=== PATIENT | female | born 1965 | race Asian ===

== ENCOUNTER 2023-02-27 12:42 | Day surgery (SDC) | payer OTHER, SELFPAY ==
--- NOTE | 2023-02-27 | PATH_ITS ---
[facility] Accession Number: [id number] No. of containers..03 Tissue . 01 Material submitted: . PART A: gastrointestinal site - GASTRIC BX PART B: cecum - CECAL POLYP PART C: sigmoid colon - SIGMOID POLYP . 01 Diagnosis: A. Gastric, Biopsy: Gastric oxyntic mucosa with no significant diagnostic alterations. No Helicobacter pylori organisms identified on H/E slide. No intestinal metaplasia, dysplasia, or malignancy. . B. Cecal Polyp, Biopsy: Tubular adenoma. . C. Sigmoid Colon Polyp, Biopsy: Tubular adenoma with focal high-grade dysplasia. No malignancy identified. See comment. MRV 03/02/2023 1341 Local . 01 Comment: C. Due to tissue orientation and piecemeal sampling, evaluation of the presence or absence of high-grade dysplasia at the margin is not possible in this sample. As part of routine quality technician fiberglass, Dr. Sherwin Joseph has also reviewed part C of this case and agrees with the interpretation. . 01 Electronically signed: . Stacy Valadez MD, Pathologist NPI- [id number] . 01 Gross description: . Part A: GASTRIC BX: Received in formalin is 1 fragment(s) of singer, soft tissue measuring 0.2 x 0.1 x 0.1 cm submitted entirely in 1 cassette(s) Part B: CECAL POLYP: Received in formalin is multiple fragment(s) of singer, soft tissue measuring 0.7 x 0.4 x 0.1 cm in aggregate submitted entirely in 1 cassette(s) Part C: SIGMOID POLYP: Received in formalin is 1 fragment(s) of singer, soft tissue measuring 0.7 x 0.6 x 0.3 cm submitted entirely in 1 cassette(s) /AAY 02/28/2023 0628 Local . 01 Pathologist provided ICD-10: D12.0, D12.5 . 01 CPT . 498812, 160130, 094446 Specimen Comment: A courtesy copy of this report has been sent to [phone] Performed at: 01 [facility] [address] [place] [address] [id number] MD Ryan Hillman MD Phone: [phone]
[2023-02-27 13:15] VITALS: BP 120/89; PULSE 69; RESP 16; TEMP 36.5; O2SAT 99
[2023-02-27] MEDS: LACTATED RINGERS 1,000 ML 42 ML IV ×2 (13:29→14:39)
--- NOTE | 2023-02-27 13:47 | PM.PREOP ---
Pre-operative Note Interval Note History & Physical reviewed/Exam performed by Physician: Yes Changes to H&P: No
--- NOTE | 2023-02-27 14:49 | P.OP.EGD&C_ITS ---
Operative Date/Time/Diagnoses Date of procedure: 02/27/23 Time of procedure: 14:49 Pre-op diagnosis: Epigastric pain Positive fecal immunochemical test Post-op diagnosis: same Procedure & Clinicians Study performed: Diagnostic Esophagoduodenoscopy and colonoscopy Same procedure as scheduled: Yes Indications: Positive fecal immunochemical test Epigastric pain Surgeon: Ruben Conner Procedure Notes Procedure in detail: The history and physical was performed/updated and the patient is ASA class is 2. The procedure was discussed in detail with the patient. Potential risks complications including infection, bleeding, missed diagnosis, perforation, need for surgery, and were explained. Their questions were answered and informed consent was obtained. Patient placed in left lateral decubitus position. Time out was performed. Pr ocedural sedation was administered by Anesthesia. A bite block was placed. the scope was inserted into the mouth and advanced through the esophagus and into the stomach. the pylorus was intubated and the duodenum was examined to the 2nd portion.. The scope was retroflexed within the stomach. The stomach was then decompressed and scope pulled back to the GE junction. The scope was then removed Examination began with a thorough inspection of the perianal area there was no evidence of fissures, fistulae, external hemorrhoids or cutaneous malignancy. The colonoscopy scope was then placed into the anal canal and was advanced to the cecum, which was identified by the ileocecal valve, the appendiceal orifice and the confluence of the taenia. The scope was then slowly withdrawn examining colon thoroughly in all directions, irrigating it of any residual stool. FINDINGS -mild gastritis no distinct ulcer or active hemorrhage -cecum 5 mm polyp removed with biopsy forceps -sigmoid colon 20 cm from the verge 1 cm pedunculated polyp removed in pieces with cold snare. The patient tolerated the procedure well. They will be discharged once criteria are met. The prep was of good/excellent quality. The withdrawl time was 15 minutes. Specimen(s): other (Gastric, cecal polyp, sigmoid polyp) Impression: Colonic polyps x2 Post-procedure Plan for aftercare: Will notify with biopsy results Follow-up is dependent on pathology findings Disposition: same day surgery
[2023-02-27 14:50] VITALS: BP 89/53; PULSE 65; RESP 16; TEMP 36.2; O2SAT 98
[2023-02-27 14:55] VITALS: BP 90/53; PULSE 65; RESP 16; TEMP 36.2; O2SAT 98
[2023-02-27 15:00] VITALS: BP 120/88; BP 90/53; PULSE 65; PULSE 72; RESP 16; TEMP 36.2; O2SAT 99
[2023-02-27 15:05] VITALS: BP 95/55; PULSE 66; RESP 16; TEMP 36.2; O2SAT 98
[2023-02-27 15:15] VITALS: BP 96/63; PULSE 66; RESP 16; TEMP 36.8; O2SAT 99
== END 2023-02-27 15:20 | disposition home or self-care (01) ==
PROVIDERS: PCP Physician Assistant; Referring Provider Surgery; Visit Provider Surgery
PROC: 0DJ08ZZ Inspection of Upper Intestinal Tract, Via Natural or Artificial Opening Endoscopic (ICD-10-PCS; CPT 43235; principal; 2023-02-27 13:45)
PROC: 0DJD8ZZ Inspection of Lower Intestinal Tract, Via Natural or Artificial Opening Endoscopic (ICD-10-PCS; CPT 45378; 2023-02-27 13:45)
DX: R10.13 Epigastric pain (principal); R19.5 Other fecal abnormalities; K29.70 Gastritis, unspecified, without bleeding; D12.0 Benign neoplasm of cecum; D12.5 Benign neoplasm of sigmoid colon
CPT/HCPCS: 45385; 45380; 43239; J2250; J2704

== ENCOUNTER 2023-03-24 07:23 | Day surgery (SDC) | payer OTHER, SELFPAY ==
--- NOTE | 2023-03-24 | PATH_ITS ---
[facility] Accession Number: [id number] No. of containers..02 Tissue . 01 Material submitted: . PART A: sigmoid colon - BASE OF SIGMOID POLYP PART B: sigmoid colon - SIGMOID POLYP . 01 Diagnosis: A. BASE OF SIGMOID COLON POLYP, BIOPSY: Colonic mucosa with no diagnostic abnormality. Negative for dysplasia or malignancy. . B. SIGMOID COLON POLYP, POLYPECTOMY: Tubular adenoma. Negative for high-grade dysplasia or malignancy. The polypectomy appears complete. MRV 03/30/2023 1249 Local . 01 Electronically signed: . Sherwin Joseph MD, PhD, Pathologist NPI- [id number] . 01 Gross description: . Part A: BASE OF SIGMOID POLYP: Received in formalin is multiple fragment(s) of singer, soft tissue measuring 1.0 x 0.5 x 0.1 cm in aggregate submitted entirely in 1 cassette(s) Part B: SIGMOID POLYP: Received in formalin is 1 fragment(s) of singer, soft tissue measuring 1.0 x 0.6 x 0.5 cm which is bisected and submitted entirely in 1 cassette(s) /AAY 03/26/2023 0528 Local . 01 Pathologist provided ICD-10: D12.5 . 01 CPT . 993519, 088342 Specimen Comment: A courtesy copy of this report has been sent to [phone] Performed at: 01 [facility] [address] [place] [address] [id number] MD Ryan Hillman MD Phone: [phone]
[2023-03-24] MEDS: LACTATED RINGERS 1,000 ML 42 ML IV (08:03)
[2023-03-24 08:07] VITALS: BP 118/80; PULSE 69; RESP 16; TEMP 36.4; O2SAT 100
--- NOTE | 2023-03-24 08:26 | PM.HP.1 ---
History of Present Illness History of Present Illness Date Patient Seen: 03/24/23 Time Patient Seen: 08:26 Chief complaint: Colonoscopy Narrative: 58-year-old woman who had a diagnostic colonoscopy within the past month. Within the sigmoid colon polyp with high-grade dysplasia was removed. She is here today for a repeat examination of the area with tattooing and additional biopsy. [facility] Medical History Healthy female adult Surgical History Hx of cholecystectomy Family History Mother Diabetes mellitus Social History marital status: household members: spouse lives independently: Yes occupational status: employed Smoking Status: Never smoker alcohol intake: current substance use type: does not use Meds Home Medications and Allergies Home Medications Medication Instructions Recorded Confirmed Type esomeprazole magnesium 20 mg 20 mg PO DAILY 02/13/23 03/24/23 History capsule,delayed release (Nexium) levothyroxine 25 mcg tablet 25 mcg PO DAILY 02/13/23 03/24/23 History (Synthroid) multivit with min-folic acid 1 tab PO DAILY 02/13/23 03/24/23 History [Women's Multivitamin Gummies] multivitamin with minerals 1 tab PO BID 02/13/23 03/24/23 History (Hair,Skin and Nails tablet) zolpidem 6.25 mg tablet,extended 6.25 mg PO BEDTIME 02/13/23 03/24/23 History release,multiphase (Ambien CR) Allergies Allergy/AdvReac Type Severity Reaction Status Date / Time No Known Drug Allergies Allergy Verified 03/24/23 08:07 Exam Vital Signs (past 8 hours): - 03/24/23 08:07 Temperature 97.6 F Pulse Rate 69 Respiratory Rate 16 Blood Pressure 118/80 Pulse Oximetry 100 Oxygen Delivery Method Room Air Oxygen Delivery Method Room Air Narrative Exam Narrative: General adult woman alert oriented no acute distress Chest nonlabored respiration Extremities warm well perfused Assessment & Plan Assessment and plan (1) Dysplastic colon polyp: Status: Acute Assessment & Plan narrative: 58-year-old woman with a recently identified dysplastic colonic polyp here for repeat colonoscopy with tattooing and biopsy. Technical details were discussed. Risks, benefits, alternatives explained. Risks including but not limited to myocardial infarction, aspiration, bleeding, pain, missed lesion, incomplete examination, need for further radiographic studies, colonic perforation, and need for major abdominal surgery were discussed. All questions were answered to their satisfaction, and they are in agreement with this plan.
[2023-03-24 09:00] VITALS: BP 112/79; PULSE 60; RESP 12; TEMP 36.2; O2SAT 98
[2023-03-24 09:05] VITALS: BP 112/75; PULSE 62; RESP 13; O2SAT 98
--- NOTE | 2023-03-24 09:08 | PM.OP.COLON ---
Operative Date/Time/Diagnoses Date of procedure: 03/24/23 Time of procedure: 09:08 Pre-op diagnosis: Dysplastic colonic polyp Procedure & Clinicians Study performed: Sigmoidoscopy Same procedure as scheduled: Yes Indications: 58-year-old woman underwent a diagnostic colonoscopy within the past 1 month for a positive fecal immunochemical test. Pathology at that time demonstrated a dysplastic polyp within the sigmoid colon with high-grade dysplasia. She is here today for re-evaluation and tattoo placement. Surgeon: Ruben Conner Procedure Notes Procedure in detail: The history and physical was performed/updated and the patient is ASA class is 1. The procedure was discussed in detail with the patient. Potential risks complications including infection, bleeding, missed diagnosis, perforation, need for surgery, and were explained. Their questions were answered and informed consent was obtained. Patient was brought to the procedure room and placed standard monitoring equipment. The patient's vital signs were monitored continuously throughout the entire procedure. Prior to starting time-out was performed. The patient was placed in the left lateral recumbent position. Procedural sedation was administered by anesthesia. Examination began with a thorough inspection of the perianal area there was no evidence of fissures, fistulae, external hemorrhoids or cutaneous malignancy. The colonoscopy scope was then placed into the anal canal and was advanced forward. At 20 cm from the verge we encountered the residual of the previous sigmoid polyp. The residual was removed using hot snare. Biopsy of the base polyp was performed with forceps. A total of 2 mL of ink was injected into the mucosa marked the site of the polyp. The scope was then carefully withdrawn no additional findings noted other than internal hemorrhoids. Specimen(s): other (Sigmoid polyp. Base of sigmoid polyp) Impression: Colonic polyp x1 Post-procedure Plan for aftercare: Will notify with pathology results Disposition: same day surgery
[2023-03-24 09:10] VITALS: BP 120/81; PULSE 59; RESP 13; O2SAT 98
[2023-03-24 09:15] VITALS: BP 117/87; PULSE 62; RESP 17; O2SAT 100
[2023-03-24 09:27] VITALS: BP 137/85; PULSE 55; RESP 15; TEMP 36.6; O2SAT 100
== END 2023-03-24 09:46 | disposition home or self-care (01) ==
PROVIDERS: PCP Physician Assistant; Referring Provider Surgery; Visit Provider Surgery
PROC: 0DJD8ZZ Inspection of Lower Intestinal Tract, Via Natural or Artificial Opening Endoscopic (ICD-10-PCS; CPT 45378; principal; 2023-03-24 08:30)
DX: D12.5 Benign neoplasm of sigmoid colon (principal)
CPT/HCPCS: 45338; 45335; J2704